=== PATIENT | female | born 1970 ===

== ENCOUNTER → 2023-10-14 | Outpatient (CLI) | payer BC ==
[2023-10-20 19:59] LABS: HPV HIGH RISK BY TMA Not Detected; HPV SOURCE Cervical
== END ==
LOC: LAB 18:03 → LAB SHORT 18:03
PROVIDERS: Advanced Practice Midwife
DX: Z01.419 Encounter for gynecological examination (general) (routine) without abnormal findings (principal)
CPT/HCPCS: 87624; G0123